=== PATIENT | male | born 1950 | race Hispanic/Latino ===

== ENCOUNTER 2017-06-18 17:50 | Emergency (ER) | payer OTHER, MEDICARE ==
[2017-06-18 18:59] LABS: Basophils % (Auto) 0.6 % (0.0-1.8); Eosinophils % (Auto) 0.1 % (0.0-4.3); Hematocrit 37.7 % (35.5-45.6); Hemoglobin 12.4 gm/dl (11.8-15.2); Lymphocytes # (Auto) 0.4 K/mm3 (1.2-5.4); Lymphocytes % (Auto) 6.3 % (13.4-35.0); Mean Corpuscular HGB Conc 33 % (32-34); Mean Corpuscular Hemoglobin 34 pg (28-32); Mean Corpuscular Volume 103 fl (84-94); Monocytes # (Auto) 0.4 K/mm3 (0.0-0.8); Monocytes % (Auto) 6.4 % (0.0-7.3); Platelet Count 203 K/mm3 (140-440); Red Blood Count 3.66 M/mm3 (3.65-5.03); Red Cell Distribution Width 17.5 % (13.2-15.2)
[2017-06-18 19:08] LABS: BUN/Creatinine Ratio 27; Blood Urea Nitrogen 30 mg/dL (9-20); Calcium 8.4 mg/dL (8.4-10.2); Hemolysis Index 4
--- NOTE | 2017-06-18 20:32 | XRay Report ---
FINAL REPORT PROCEDURE: XR CHEST ROUTINE 2V TECHNIQUE: HISTORY: Shortness of breath COMPARISON: No prior studies are available for comparison. FINDINGS: Heart size upper normal to mildly enlarged. The pulmonary vasculature is not distended. Small left pleural effusion is seen. There appears to be a small right pleural effusion as well as dense consolidation in the right lower lobe and also in the right middle lobe suggesting pneumonia and or atelectasis. No acute bony abnormalities are seen. Lungs appear mildly hyperinflated. IMPRESSION: Borderline to mild cardiomegaly. Small left pleural effusion present. Small right pleural effusion visualized as well as dense consolidation right lower lobe and right middle lobe suggesting pneumonia and or atelectasis. Lungs appear mildly hyperinflated.
[2017-06-18] MEDS ORDERED: LASIX IV ONE (20:53)
--- NOTE | 2017-06-18 20:53 | Emergency Department Report ---
ED Shortness of Breath HPI - General Chief Complaint: Dyspnea/Respdistress Stated Complaint: SWOLLEN LEGS/SOB Time Seen by Provider: 06/18/17 20:46 Source: patient Mode of arrival: Ambulatory Limitations: No Limitations - History of Present Illness Initial Comments: Patient is 67 years old male with no significant past medical history except for hernia repair. Patient stated that he does not follow ANY doctor. Patient presented to the ER complaining of shortness of breath and cough for the last 3 weeks, got worse in the last 2-3 days. Patient denied chest pain. He describes his shortness of breath chest is source when he started walking he is feeling fatigued and tired all the time. He describes symptoms of orthopnea. Patient denied any fever but he admit having chills. No nausea or vomiting. Patient denied any weight loss. He stated that he has he didn't have appetite recently. MD Complaint: shortness of breath, cough -: Gradual, week(s) - Related Data Allergies Allergy/AdvReac Type Severity Reaction Status Date / Time No Known Allergies Allergy Verified 06/18/17 21:41 ED Review of Systems ROS: Stated complaint: SWOLLEN LEGS/SOB Other details as noted in HPI Comment: All other systems reviewed and negative Constitutional: denies: chills, fever Respiratory: cough, orthopnea, shortness of breath, SOB with exertion, SOB at rest. denies: wheezing Cardiovascular: palpitations. denies: chest pain, dyspnea on exertion Gastrointestinal: denies: abdominal pain, nausea, vomiting, diarrhea, constipation, hematemesis, melena, hematochezia Genitourinary: denies: urgency, dysuria, frequency, hematuria, discharge Musculoskeletal: denies: back pain Neurological: weakness (generalized). denies: headache, numbness, paresthesias , confusion, abnormal gait, vertigo ED Past Medical Hx - Past Medical History Previous Medical History?: No - Surgical History Past Surgical History?: No - Social History Smoking Status: Current Every Day Smoker Substance Use Type: Alcohol ED Physical Exam - General Limitations: No Limitations General appearance: alert, in no apparent distress - Head Head exam: Present: atraumatic, normocephalic, normal inspection - Eye Eye exam: Present: normal appearance, PERRL - ENT ENT exam: Present: normal exam, normal orophraynx, mucous membranes moist - Neck Neck exam: Present: normal inspection, full ROM. Absent: tenderness, meningismus, lymphadenopathy, thyromegaly - Respiratory Respiratory exam: Present: rales (right lower lobe), decreased breath sounds. Absent: respiratory distress, wheezes, rhonchi, stridor, chest wall tenderness, accessory muscle use, prolonged expiratory - Cardiovascular Cardiovascular Exam: Present: tachycardia - GI/Abdominal GI/Abdominal exam: Present: soft, normal bowel sounds. Absent: distended, tenderness, guarding, rebound, rigid, organomegaly, mass, bruit, pulsatile mass - Extremities Exam Extremities exam: Present: normal inspection, full ROM, normal capillary refill , pedal edema. Absent: tenderness, joint swelling, calf tenderness - Back Exam Back exam: Present: normal inspection, full ROM. Absent: tenderness, CVA tenderness (R), CVA tenderness (L), muscle spasm, paraspinal tenderness, vertebral tenderness - Neurological Exam Neurological exam: Present: alert, oriented X3, CN II-XII intact, normal gait, reflexes normal - Skin Skin exam: Present: warm, intact, normal color. Absent: cyanosis ED Course Vital Signs 06/18/17 06/18/17 06/18/17 18:11 20:50 21:00 Temperature Pulse Rate 129 H 118 H Respiratory 20 15 Rate Blood Pressure 128/94 120/85 Blood Pressure [Right] O2 Sat by Pulse 96 93 99 Oximetry 06/18/17 06/18/17 06/18/17 21:16 21:25 21:30 Temperature 97.7 F Pulse Rate 116 H 126 H 115 H Respiratory 12 18 11 L Rate Blood Pressure 120/91 127/85 Blood Pressure 120/91 [Right] O2 Sat by Pulse 99 100 99 Oximetry 06/18/17 06/18/17 06/18/17 21:47 22:00 22:16 Temperature Pulse Rate 136 H 125 H 132 H Respiratory 16 15 Rate Blood Pressure 127/85 130/95 127/85 Blood Pressure [Right] O2 Sat by Pulse 97 98 Oximetry 06/18/17 23:12 Temperature Pulse Rate 69 Respiratory Rate Blood Pressure 89/71 Blood Pressure [Right] O2 Sat by Pulse 90 Oximetry - Reevaluation(s) Reevaluation #1: 06/18/17 23:36 Patient all of a sudden became diaphoretic and lost his pulse, but no cord initiated. ACLS protocol was started. Patient immediately intubated by me, initial rhythm was a PEA. Patient in and out of PEA. Please refer to code sheet for further information. Physical initial EKG showed a left bundle branch block, no previous EKG to compare with. Patient initial troponin was negative. Patient in acute heart failure. I discussed with Dr. Weaver, I informed him about the left bundle branch block. Dr Weaver advice to start patient on dobutamine and levophed drip. He stated that the patient stabilize he can taken to the cardiac cath. Reevaluation #2: 06/19/17 00:48 Patient remained in PEA after multiple codes, unable to get his pulse back. Patient pronounced at 12:30 AM. For further information please refer to code sheet. No family available at this moment. - Central Line Placement Right SC Consent Obtained: emergent situation Time Out Performed: Yes Patient Placed on Monitor/Pulse Ox: Yes MD Prep: mask, gown, gloves Central Line Prep: Povidone-Iodine 1%, Chlorhexidine scrub, sterile drapes applied Local Anesthesia Used: Lidocaine 2% Central Line Lumen Inserted: triple Central Line Position: good blood return, all ports aspirated, flus, sutured in place with 2-0 Dressing Applied: Tegaderm, sterile gauze/tape Patient Tolerated Procedure: well, no complications Complications: none - Intubation Time Out Performed: Yes Sedative: Etomidate Mg Given: 20 Paralytic: Succinylcholine Laryngoscope: Magali Size: 3 ET Tube Size: 7.5 Tube Secured Location: teeth Tube Placement Confirmation: visualized tube passing t, equal breath sounds bilat, no breath sounds over epi, confirmation by capnometr Patient Tolerated Procedure: well, no complications ED Medical Decision Making - Lab Data Result diagrams: 06/18/17 18:45 06/18/17 18:45 - EKG Data -: EKG Interpreted by Me EKG shows normal: sinus rhythm - EKG Data Interpretation: other 06/18/17 21:42 Left bundle-branch stroke, no previous EKG to compare. - Radiology Data Radiology results: report reviewed Referring Physician: ED DOC Patient Name: JOHN PAUL CRENSHAW Date of : 1950 Sex: Male Report Date: 2017-06-18 Report Status: Finalized Findings [facility] [address] [place] [address] XRay Report Signed Patient: JOHN PAUL CRENSHAW MR#: [id number] : 1950 Acct:[id number] Age/Sex: 67 / M ADM Date: 06/18/17 Loc: ED Attending Dr: Ordering Physician: JUANPABLO WATSON MD Date of Service: 06/18/17 Procedure(s): XR chest routine 2V Accession Number(s): [id number] cc: JUANPABLO WATSON MD Fluoro Time In Minutes: FINAL REPORT PROCEDURE: XR CHEST ROUTINE 2V TECHNIQUE: HISTORY: Shortness of breath COMPARISON: No prior studies are available for comparison. FINDINGS: Heart size upper normal to mildly enlarged. The pulmonary vasculature is not distended. Small left pleural effusion is seen. There appears to be a small right pleural effusion as well as dense consolidation in the right lower lobe and also in the right middle lobe suggesting pneumonia and or atelectasis. No acute bony abnormalities are seen. Lungs appear mildly hyperinflated. IMPRESSION: Borderline to mild cardiomegaly. Small left pleural effusion present. Small right pleural effusion visualized as well as dense consolidation right lower lobe and right middle lobe suggesting pneumonia and or atelectasis. Lungs appear mildly hyperinflated. Transcribed By: DFN Dictated By: SUZIE BERMUDEZ MD Electronically Authenticated By: SUZIE BERMUDEZ MD Signed Date/Time: 06/18/172026 DD/ 26 TD/TT: 06/18/172026 - Medical Decision Making Discussed with Dr. Nadeen Spain, I presented the patient, she agreed to admit the patient to her service. Critical Care Time: Yes Critical care time in (mins) excluding proc time.: 130 Critical care attestation.: If time is entered above; I have spent that time in minutes in the direct care of this critically ill patient, excluding procedure time. ED Disposition Clinical Impression: CHF exacerbation, Shortness of breath, Right lower lobe pneumonia, Cardiopulmonary arrest Disposition: OP ADMIT IP TO THIS HOSP Is pt being admited?: Yes Condition: Stable Instructions: Bacterial Pneumonia (ED) Referrals: PRIMARY CARE, [Primary Care Provider] - 3-5 Days
[2017-06-18] MEDS ORDERED: ROCEPHIN/NS 1 GM/50 ML 1 GM/50 ML BAG IV ONE (21:39)
[2017-06-18] MEDS ORDERED: ZITHROMAX 500 MG in NACL 0.9% 250ML 250 ML IV ONE (21:39)
[2017-06-18] MEDS ORDERED: cefTRIAXone 1 GM in NACL 0.9% 20 ML IV ONE (21:45)
[2017-06-18] MEDS ORDERED: ADRENALIN ONE (22:24)
[2017-06-18] MEDS ORDERED: AMIDATE IV ONE (22:24)
[2017-06-18] MEDS ORDERED: ZEMURON IV ONE (22:24)
[2017-06-18] MEDS ORDERED: QUELICIN ONE (22:24)
[2017-06-18] MEDS ORDERED: BENADRYL ONE (22:28)
[2017-06-18] MEDS ORDERED: VASELINE LIP THERAPY TP PRN (22:48)
[2017-06-18] MEDS ORDERED: ARTIFICIAL TEARS OPHTH OINT OU PRN (22:48)
[2017-06-18] MEDS ORDERED: LEVOPHED DRIP 4 MG/NS 250 ML 4 MG/250 ML BAG IV ONE (23:00)
[2017-06-18] MEDS ORDERED: NACL 0.9% 500 ML IV SCH (23:00)
[2017-06-18] MEDS ORDERED: MIDAZOLAM 100 MG in NACL 0.9% 80 ML IV SCH (23:45)
[2017-06-18] MEDS ORDERED: DOBUTREX DRIP 500MG/D5W 250ML 500 MG/250 ML BAG IV ONE (23:52)
--- NOTE | 2017-06-18 23:52 | History and Physical Report ---
Medications and Allergies Allergies Allergy/AdvReac Type Severity Reaction Status Date / Time No Known Allergies Allergy Verified 06/18/17 21:41 Active Meds: Active Medications Hydrophilic Ointment (Vaseline Lip Therapy) 1 applic TP Q2HR PRN PRN Reason: Dry Lips Midazolam HCl 100 mg/ Sodium (Chloride) 100 mls @ 2 mls/hr IV TITR MAXI; Protocol Multi-Ingred Cream/Lotion/Oil/Oint (Artificial Tears Ophth Oint) 1 applic OU Q4HR PRN PRN Reason: Dry Eye(s) Sodium Chloride (Nacl 0.9% 500 Ml) 1 ml IV DIRECT MAXI Exam - Constitutional Vitals: Temp Pulse Resp BP Pulse Ox 97.7 F 132 H 15 127/85 98 06/18/17 21:25 06/18/17 22:16 06/18/17 22:16 06/18/17 22:16 06/18/17 22:16 Results - Labs CBC & Chem 7: 06/18/17 18:45 06/18/17 18:45 Labs: Abnormal lab results 06/18/17 06/18/17 06/18/17 Range/Units 18:32 18:45 18:45 MCV 103 H (84-94) fl MCH 34 H (28-32) pg RDW 17.5 H (13.2-15.2) % Lymph % (Auto) 6.3 L (13.4-35.0) % Lymph # 0.4 L (1.2-5.4) K/mm3 Seg Neutrophils % 86.6 H (40.0-70.0) % Sodium 134 L (137-145) mmol/L Chloride 96.9 L (98-107) mmol/L Carbon Dioxide 21 L (22-30) mmol/L BUN 30 H (9-20) mg/dL Glucose 127 H (75-100) mg/dL NT-Pro-B Natriuret Pep 11920 H (0-900) pg/mL
[2017-06-19 00:16] VITALS: BP 89/71
--- NOTE | 2017-06-19 00:53 | Event Note ---
Date: 06/19/17 ER physician consulted me to admit this patient. The patient refused admission , he stated that he has to go home to take care of his dog. ER physician was notified. Patient coded shortly after and was pronounced
== END 2017-06-19 03:23 ==
LOC: ED 17:50
DX: I50.9 Heart failure, unspecified (principal); I46.9 Cardiac arrest, cause unspecified; J18.1 Lobar pneumonia, unspecified organism; F17.200 Nicotine dependence, unspecified, uncomplicated
CPT/HCPCS: 31500; 36415; 36556; 71046; 80048; 83880; 84484; 85025; 87040; 92950; 93005; 93010; 96365; 96366; 96367; 96375; 99291; 99292; J0171; J0330; J0456; J0696; J1200; J1250; J1940; J2250; J2930; J7050; 94002